=== PATIENT | female | born 1995 | race Caucasian/White ===

== ENCOUNTER 2016-09-09 08:15 | Emergency (ER) | payer OTHER ==
[~2016-09-09] VITALS: Ht 162.6 cm; Wt 101.0 kg
[2016-09-09 08:19] VITALS: Ht 162.6 cm; Wt 101.0 kg
[2016-09-09] MEDS ORDERED: AMO500 PO (08:50)
[2016-09-09] MEDS ORDERED: IBUP-1542 PO (08:50)
--- NOTE | 2016-09-09 08:52 | ERD ---
ER Documentation Chief Complaint Date/Time DATE: 09/09/16 TIME: 08:51 Chief Complaint Complains of a sorethroat x 3 days HPI This 21-year-old female complains of sore throat for last 3 days. She may have had tactile fever yesterday. She denies significant cough, chest pain, vomiting , abdominal pain, neck stiffness, rashes. ROS All systems reviewed and are negative except as per history of present illness. Medications Home Meds Active Scripts Ibuprofen* (Motrin*) 600 Mg Tab, 600 MG PO Q6, #15 TAB Prov:EDER GRACE MD 09/09/16 Amoxicillin* (Amoxicillin*) 500 Mg Cap, 500 MG PO TID for 10 Days, CAP Prov:EDER GRACE MD 09/09/16 Reported Medications [None] No Conflict Check 09/11/10 Allergies Allergies: Coded Allergies: No Known Allergy (Unverified , 08/13/14) PMhx/Soc Medical and Surgical Hx: pt denies Medical Hx, pt denies Surgical Hx History of Surgery: No Anesthesia Reaction: No Hx Neurological Disorder: No Hx Respiratory Disorders: No Hx Cardiac Disorders: No Hx Psychiatric Problems: No Hx Miscellaneous Medical Probl: No Hx Alcohol Use: No Hx Substance Use: No Hx Tobacco Use: No Physical Exam Vitals Vital Signs Date Time Temp Pulse Resp B/P Pulse Ox O2 Delivery O2 Flow Rate FiO2 09/09/16 08:19 98.3 115 20 128/74 99 Physical Exam Const: [] Alert, [id number]. Head: Atraumatic Eyes: Normal Conjunctiva ENT: Normal External Ears, Nose and Mouth. Tonsils 3+ with erythema. Airway patent and uvula midline. Neck: Full range of motion..~ No meningismus. Resp: Clear to auscultation bilaterally Cardio: Regular rate and rhythm, no murmurs Abd: Soft, non tender, non distended. Normal bowel sounds Skin: No petechiae or rashes Back: No midline or flank tenderness Ext: No cyanosis, or edema Neur: Awake and alert Psych: Normal Mood and Affect Procedures/MDM Patient presents with subjective fevers and sore throat and signs of pharyngitis. She will treated with amoxicillin and ibuprofen. The patient was stable with no new complaints during the ER course. Clinically, there is no current evidence to suggest meningitis, sepsis, acute abdomen, pneumonia, acute coronary syndrome, pulmonary embolism, or any other emergent condition appearing to require further evaluation or hospitalization. The patient should certainly return for any new or worsening symptoms per the aftercare instructions. They should otherwise follow-up with her primary care doctor for reevaluation this week. Departure Diagnosis: Primary Impression: Sore throat Condition: Stable Patient Instructions: Pharyngitis, Strep (Presumed) Additional Instructions: Recheck for new or worsening symptoms or with primary care doctor. EDER GRACE MD Sep 09, 2016 08:52
== END 2016-09-09 10:39 | disposition home or self-care (01) ==
LOC: FTE 08:15
DX: J02.9 Acute pharyngitis, unspecified (principal)

== ENCOUNTER 2017-04-26 11:02 | Emergency (ER) | payer OTHER ==
[~2017-04-26] VITALS: Ht 152.4 cm; Wt 89.0 kg
[~2017-04-26 11:02] MED LIST: AMOX500C2 PO; IBUP-1542 PO
[2017-04-26 11:04] VITALS: Ht 152.4 cm; Wt 89.0 kg
[2017-04-26] MEDS ORDERED: PENICILLIN G BENZ 1.2 MIL UNIT SYG IM ONE (12:00)
--- NOTE | 2017-04-26 12:00 | ERD ---
ER Documentation Chief Complaint Date/Time DATE: 04/26/17 TIME: 11:[address] ROS All systems reviewed and are negative except as per history of present illness. Medications Home Meds Active Scripts Ibuprofen* (Motrin*) 800 Mg Tab, 800 MG PO Q6H Y for PAIN AND OR ELEVATED TEMP, #30 TAB Prov:ORIANA BEE 04/26/17 Amoxicillin* (Amoxicillin*) 500 Mg Cap, 500 MG PO BID for 7 Days, CAP Prov:VAMSHI BEEA 04/26/17 Ibuprofen* (Motrin*) 600 Mg Tab, 600 MG PO Q6, #15 TAB Prov:EDER GRACE MD 09/09/16 Amoxicillin* (Amoxicillin*) 500 Mg Cap, 500 MG PO TID for 10 Days, CAP Prov:EDER GRACE MD 09/09/16 Reported Medications [None] No Conflict Check 09/11/10 Allergies Allergies: Coded Allergies: No Known Allergy (Unverified , 08/13/14) PMhx/Soc History of Surgery: No Anesthesia Reaction: No Hx Neurological Disorder: No Hx Respiratory Disorders: No Hx Cardiac Disorders: No Hx Psychiatric Problems: No Hx Miscellaneous Medical Probl: No Hx Alcohol Use: No Hx Substance Use: No Hx Tobacco Use: No Physical Exam Vitals Vital Signs Date Time Temp Pulse Resp B/P Pulse Ox O2 Delivery O2 Flow Rate FiO2 04/26/17 11:04 98.5 70 18 140/70 99 Results 24 hrs Current Medications Medications (Trade) Dose Ordered Sig/Tiki Route PRN Reason Start Time Stop Time Status Last Admin Dose Admin Penicillin G Benzathine (Bicillin La) 1,200,000 units ONCE ONCE IM 04/26/17 12:00 04/26/17 12:01 DC Departure Diagnosis: Primary Impression: Strep pharyngitis ORIANA BEE Apr 26, 2017 12:00 ROHITORIANA Apr 26, 2017 12:00 The patient was discharged home in fair condition. They were instructed to return to the emergency department at any time if there was any worsening of their condition. The patient stated they would follow up with their PCP in the next 24-48 hours to initiate a suitable medication regimen under the care of their PCP as well as to allow their PCP to monitor any drug reactions. The patient was discharged home with prescriptions after they gave informed consent to the new medication. They were also fully informed by myself on the adverse effects and adverse drug interactions in order to provide adequate safeguards to prevent possible adverse reactions to medications. Departure Diagnosis: Primary Impression: Strep pharyngitis Condition: ORIANA Oquendo Apr 26, 2017 12:00 antipyretics. She was also given a prescription of amoxicillin. Had no physical exam findings to suggest Juan Luis's angina or peritonsillar abscess. Nontoxic in appearance The patient was discharged home in fair condition. They were instructed to return to the emergency department at any time if there was any worsening of their condition. The patient stated they would follow up with their PCP in the next 24-48 hours to initiate a suitable medication regimen under the care of their PCP as well as to allow their PCP to monitor any drug reactions. The patient was discharged home with prescriptions after they gave informed consent to the new medication. They were also fully informed by myself on the adverse effects and adverse drug interactions in order to provide adequate safeguards to prevent possible adverse reactions to medications. Departure Diagnosis: Primary Impression: Strep pharyngitis Condition: ORIANA Oquendo Apr 26, 2017 12:00
[2017-04-26] MEDS ORDERED: AMOX500C2 PO ×2 (12:02→13:42)
[2017-04-26] MEDS ORDERED: IBUP800T25 PO (12:02)
[2017-04-26] MEDS ORDERED: IBUP-1542 PO (13:42)
== END 2017-04-26 13:01 | disposition home or self-care (01) ==
LOC: E/R 11:02 → FTE 13:01
DX: J02.0 Streptococcal pharyngitis (principal)
CPT/HCPCS: J0561; Z7502; 99283

== ENCOUNTER 2017-04-26 13:02 | Emergency (ER) | payer OTHER ==
[~2017-04-26] VITALS: Wt 89.0 kg
[~2017-04-26 13:02] MED LIST changes: +IBUP800T25 PO
[2017-04-26] MEDS ORDERED: IBUP-1542 PO (13:42)
[2017-04-26] MEDS ORDERED: AMOX500C2 PO (13:42)
--- NOTE | 2017-04-26 13:44 | ERD ---
ER Documentation Chief Complaint Date/Time DATE: 04/26/17 TIME: 13:44 Chief Complaint SORE THROAT FOR THE PAST FEW DAYS. HPI This 21-year-old female presents with a sore throat for the last 3 days. She may have had tactile fevers. She denies cough, vomiting, abdominal pain, diarrhea, neck stiffness, rashes. ROS All systems reviewed and are negative except as per history of present illness. Medications Home Meds Active Scripts Ibuprofen* (Motrin*) 600 Mg Tab, 600 MG PO Q6, #15 TAB Prov:EDER GRACE MD 04/26/17 Amoxicillin* (Amoxicillin*) 500 Mg Cap, 500 MG PO TID for 10 Days, CAP Prov:EDER GRACE MD 04/26/17 Ibuprofen* (Motrin*) 800 Mg Tab, 800 MG PO Q6H Y for PAIN AND OR ELEVATED TEMP, #30 TAB Prov:ORIANA BEE 04/26/17 Amoxicillin* (Amoxicillin*) 500 Mg Cap, 500 MG PO BID for 7 Days, CAP Prov:ORIANA BEE 04/26/17 Ibuprofen* (Motrin*) 600 Mg Tab, 600 MG PO Q6, #15 TAB Prov:EDER GRACE MD 09/09/16 Amoxicillin* (Amoxicillin*) 500 Mg Cap, 500 MG PO TID for 10 Days, CAP Prov:EDER GRACE MD 09/09/16 Reported Medications [None] No Conflict Check 09/11/10 Allergies Allergies: Coded Allergies: No Known Allergy (Unverified , 08/13/14) PMhx/Soc History of Surgery: No Anesthesia Reaction: No Hx Neurological Disorder: No Hx Respiratory Disorders: No Hx Cardiac Disorders: No Hx Psychiatric Problems: No Hx Miscellaneous Medical Probl: No Hx Alcohol Use: No Hx Substance Use: No Hx Tobacco Use: No Physical Exam Vitals Vital Signs Date Time Temp Pulse Resp B/P Pulse Ox O2 Delivery O2 Flow Rate FiO2 04/26/17 13:09 98.5 70 20 140/70 98 Physical Exam Const: [], [id number]. Head: Atraumatic Eyes: Normal Conjunctiva ENT: Normal External Ears, Nose and Mouth. TMs normal. Tonsils 3+ with erythema and exudate. Airway patent uvula midline. Neck: Full range of motion..~ No meningismus. Resp: Clear to auscultation bilaterally Cardio: Regular rate and rhythm, no murmurs Abd: Soft, non tender, non distended. Normal bowel sounds Skin: No petechiae or rashes Back: No midline or flank tenderness Ext: No cyanosis, or edema Neur: Awake and alert Psych: Normal Mood and Affect Procedures/MDM Patient presents with signs and symptoms of acute exudative pharyngitis without evidence of airway obstruction or abscess. She will treated with amoxicillin ibuprofen and return precautions and primary care follow-up. The patient was stable with no new complaints during the ER course. Clinically, there is no current evidence to suggest meningitis, sepsis, acute abdomen, pneumonia, acute coronary syndrome, pulmonary embolism, or any other emergent condition appearing to require further evaluation or hospitalization. The patient should certainly return for any new or worsening symptoms per the aftercare instructions. They should otherwise follow-up with her primary care doctor for reevaluation this week. Departure Diagnosis: Primary Impression: Sore throat Condition: Stable Patient Instructions: Pharyngitis, Strep (Presumed) Additional Instructions: Recheck for new or worsening symptoms or primary care doctor. EDER GRACE MD Apr 26, 2017 13:44
== END 2017-04-26 15:16 | disposition home or self-care (01) ==
LOC: FTE 13:02
DX: J02.9 Acute pharyngitis, unspecified (principal)
CPT/HCPCS: 99283

== ENCOUNTER 2017-08-16 08:49 | Emergency (ER) | END 2017-08-16 12:15 | disposition home or self-care (01) ==

== ENCOUNTER 2017-10-08 19:52 | Emergency (ER) | END 2017-10-08 21:29 | disposition home or self-care (01) ==